=== PATIENT | male | born 1985 | race Caucasian/White ===

== ENCOUNTER 2024-09-20 21:55 | Inpatient (IN) ==
[2024-09-20 22:26] LABS: Basophils # (auto) 0.05 K/uL (0.00-0.20); Basophils % (auto) 0.4 %; Eosinophils # (auto) 0.08 K/uL (0.00-0.50); Eosinophils % (auto) 0.7 %; Hematocrit (blood only) 44.8 % (42.0-52.0); Hemoglobin 15.9 g/dl (14.0-18.0); Immature Granulocytes # (auto) 0.02 K/uL (0.01-0.20); Immature Granulocytes % (auto) 0.2 %; Lymphocytes # (auto) 4.09 K/uL (1.20-3.40); Lymphocytes % (auto) 35.8 %; Mean Corpuscular Hemoglobin 29.9 pg (25.0-34.0); Mean Corpuscular Hgb Conc 35.5 g/dL (32.0-36.0); Mean Corpuscular Volume 84.4 fL (80.0-100.0); Mean Platelet Volume 10.1 fL (9.4-12.4); Monocytes # (auto) 1.09 K/uL (0.11-0.59); Monocytes % (auto) 9.5 %; Neutrophils # (auto) 6.11 K/uL (1.40-6.50); Neutrophils % (auto) 53.4 %; Platelet Count 260 K/uL (130-400); RDW Coefficient of Variation 13.3 % (11.5-14.5); RDW Standard Deviation 40.9 fL (36.4-46.3); Red Blood Count 5.31 M/uL (4.70-6.10); White Blood Count 11.44 K/ul (4.8-10.8)
--- NOTE | 2024-09-20 22:29 | Emergency Department Note ---
Impression & Plan Chest pain, Nausea, Shortness of breath, Elevated troponin ED Provider Note CHIEF COMPLAINT: Nausea, left arm pain, chest discomfort x 2 weeks HISTORY OF PRESENT ILLNESS: This 39-year-old male patient presents to the emergency department via private vehicle for various symptoms. The patient states for the past 2 weeks, he has intermittently been experiencing a nausea type of symptom. He states that there has been no vomiting and he never actually feels like he could throw up, but just generally feels uneasy in the middle of his chest. He states that the symptoms have been worsening over the past few days, particularly with walking on a treadmill. The patient states that he has also had some pain in his left arm which had been relieved with raising his left arm over his head. Last night, the patient had taken his dog outside. He was running after the dog for a few seconds and states after this, he developed sudden onset of severe pain in the middle of his chest which radiated into his back. He states that he then also developed the pain in the left arm which did not improve with raising his arm above his head. The patient states that his symptoms did seem to somewhat improved, but at about 2 or 3 AM, he woke up and his pain had returned. The patient describes a sharp sensation and a tightness in the middle of his chest at the time. He has been feeling unwell throughout most of the day today. He states that he did not have Thanksgiving dinner or travel today due to feeling unwell. He states he has been dieting and eating only cottage cheese for supper. He has been noticing symptoms worsen in the middle of the night for the past few weeks intermittently. The patient states he does notice that an empty stomach does seem to flareup and worsen his symptoms. He notes that he is concerned he may have some reflux, but has not tried any medication for the reflux yet. He denies any recent fever or illness. No recent travel. No history of PE or DVT. No recent surgery. Patient is not on hormone therapy. He denies history of similar symptoms. History provided by: Patient and REVIEW OF SYSTEMS: A 10 system review of systems was performed with positives and pertinent negatives listed in the history of present illness. All other systems were reviewed and are negative. ALLERGIES: NKDA PHYSICAL EXAM: VITALS: Vitals are noted on the nurse's note and reviewed by myself. GENERAL: This is a 39-year-old male, in no acute distress, nondiaphoretic, well- developed well-nourished. SKIN: The skin was without rashes, erythema, edema, or bruising. There is no tenting of the skin. Capillary refill less than 2 seconds. HEAD: Normocephalic atraumatic. EYES: Conjunctivae without injection, sclerae without icterus. NECK: Supple without nuchal rigidity. No lymphadenopathy. No JVD. HEART: Regular rate and rhythm without murmurs gallops or rubs. LUNGS: Clear to auscultation bilaterally without wheezes, rales or rhonchi. No retractions or accessory muscle use. ABDOMEN: Positive bowel sounds x 4. Soft, nontender, without masses or organomegaly. Antoine sign negative. No guarding or rebound tenderness. MUSCULOSKELETAL: No muscle atrophy, erythema, or edema noted. Full range of motion without joint tenderness in all extremities. No tenderness to palpation. Normal gait. Strength 5/5 throughout. NEURO: Patient was alert and oriented to person place and time. Normal sensation to light and sharp touch. No focal neurological deficits. An order was placed for continuous disability liaison officer. The monitor showed a sinus tachycardia at a ventricular rate of 104 bpm, per my interpretation. EKG was reviewed by myself and found to be normal sinus rhythm at a rate of 99 beats per minute and per my interpretation reveals no ST elevation or depression. No T wave inversion. No prior EKG available for comparison. EKG #2 was completed and reviewed by myself and Dr. Alvarado. Normal sinus rhythm at a ventricular rate of [address] elevation or depression. T wave inversions in leads I, V2, V3. Imaging as interpreted by myself and the radiologist revealed no acute findings, with radiologist interpretation as above. I agree with the radiologist's findings as based upon my independent interpretation. EMERGENCY DEPARTMENT COURSE: The patient was seen and evaluated as above. The patient presents for evaluation of chest pain. Chest pain started intermittently for the past several weeks. He did have a sudden onset of severe pain after chasing his dog last evening. He describes a nausea sensation and is having difficulty describing his discomfort. Patient believes his symptoms may be associated with reflux, but has not tried any medication. Initial EKG was completed and was reviewed as noted. IV access was obtained, labs were drawn. Patient was medicated with Pepcid and GI cocktail. Labs reviewed. Per my interpretation, there is a mild leukocytosis of 11.44. No anemia or thrombocytopenia. Coags normal. D-dimer less than 190. Renal, hepatic function and electrolytes without significant abnormality. Lipase 54. Initial troponin is elevated at 1556. Repeat delta troponin was downtrending at 1283. Chest x-ray was completed and was negative for acute abnormality. Dr. Alvarado was notified about the elevated troponin. Case was discussed with the [facility] physician. Repeat EKG was completed and reviewed as noted. I discussed the case with Dr. Tubbs, catalogue illustrator motor room controller. He does not feel that the patient requires emergent catheterization given history and current EKG findings. Was agreeable to ongoing evaluation inpatient. We did elect form CT angiogram to further evaluate the patient's symptoms. This was negative for PE, dissection, or infiltrate. Given the history and workup completed, suspect the patient had a cardiac event last night with the sudden onset of severe pain and elevated troponin as well as EKG findings at this time. Do recommend further evaluation and management of his symptoms as an inpatient. Patient was given aspirin and started on heparin while in the emergency department. I discussed the case with entry level account manager. I discussed the case with Dr. Camacho, [facility] physician. She did agree to evaluate the patient for inpatient management. I did work closely with my attending physician throughout the course of the patient's ED visit. I attest that I have personally reviewed the patient medication list. I attest that I have reviewed the patient's blood pressure and it was found to be elevated. This did improve throughout his ED visit. GCS: 15 In the evaluation and treatment of this patient the following differential diagnoses were entertained: Cardiac ischemia, aortic dissection, pulmonary embolism, pneumothorax, pneumonia, pericarditis, myocarditis, esophageal rupture, GERD, cholecystitis, pancreatitis, musculoskeletal, as well as other pathologies. The chart was completed utilizing [employer] voice recognition software. Grammatical errors, random word insertions, pronoun errors, and incomplete sentences are an occasional consequence of this system due to software limitations, ambient noise, and hardware issues. Any formal questions or concerns about the content, text, or information contained within the body of this dictation should be directly addressed to the provider for clarification. Past Med/Surg History Problem List (Updated 09/21/24 @ 02:19 by Iris Cooper PA-C) Elevated troponin (Acute) Shortness of breath (Acute) Nausea (Acute) Chest pain (Acute) Retrocalcaneal bursitis (back of heel) (Acute) Medical History No pertinent past medical history Surgical History (Updated 06/23/20 @ 13:42 by [employer]) No pertinent past surgical history Social History Smoking Status: Never smoker Preferred Language: Tajik Feels Safe at Home: Yes Allergies Allergies Allergy/AdvReac Type Severity Reaction Status Date / Time hazelnut Allergy Unknown Verified 09/21/24 01:31 Home Meds Home Medications Medication Instructions Recorded Confirmed Phenytoin Sodium (Dilantin) 1 cap PO QAM 30 days #30 caps 07/09/16 Phenytoin Sodium (Dilantin) 1 cap PO UD 30 days #0 caps 07/09/16 Phenytoin Sodium (Dilantin) 200 mg PO UD 30 days #0 caps 07/09/16 Previous Rx's Medication Instructions Recorded hydrocodone-homatropine 5 mg-1.5 5 ml PO Q6H PRN cough #60 mL 08/15/18 mg/5 mL oral syrup Results & Data (ED) Vital Signs Vital Signs - 24 hr 09/20/24 21:56 09/20/24 22:17 09/20/24 22:36 Temperature 36.5 C Temperature Source Temporal Artery Scan Pulse Rate 101 H 94 H 86 Pulse Rate from SpO2 Sensor 86 Respiratory Rate 18 17 Respiratory Effort / Characteristics Non-Labored Respiratory Depth Normal Respiratory Pattern Regular Blood Pressure 183/118 H 132/90 Blood Pressure Mean 139 104 Pulse Oximetry 99 95 Oxygen Delivery Method Room Air Room Air Sepsis Recent Fever Within 48 Hours No Sepsis New/Unexplained Change in Mental Status N/A Sepsis Action Taken by Nursing No Action Required 09/20/24 23:00 09/20/24 23:33 09/21/24 00:36 Temperature Temperature Source Pulse Rate 103 H 93 H 97 H Pulse Rate from SpO2 Sensor Respiratory Rate 16 16 16 Respiratory Effort / Characteristics Respiratory Depth Respiratory Pattern Blood Pressure 146/103 H 157/95 H 135/84 Blood Pressure Mean 118 115 97 Pulse Oximetry 95 97 97 Oxygen Delivery Method Room Air Room Air Room Air Sepsis Recent Fever Within 48 Hours Sepsis New/Unexplained Change in Mental Status Sepsis Action Taken by Nursing 09/21/24 00:36 09/21/24 01:00 Temperature Temperature Source Pulse Rate 111 H 99 H Pulse Rate from SpO2 Sensor Respiratory Rate 20 20 Respiratory Effort / Characteristics Respiratory Depth Respiratory Pattern Blood Pressure 135/84 132/98 Blood Pressure Mean 97 111 Pulse Oximetry 96 95 Oxygen Delivery Method Room Air Room Air Sepsis Recent Fever Within 48 Hours Sepsis New/Unexplained Change in Mental Status Sepsis Action Taken by Nursing Laboratory Data 09/20/24 22:04 09/20/24 22:04 Lab Results 09/20/24 09/20/24 Range/Units 22:04 23:47 WBC 11.44 H (4.8-10.8) K/ul RBC 5.31 (4.70-6.10) M/uL Hgb 15.9 (14.0-18.0) g/dl Hct 44.8 (42.0-52.0) % MCV 84.4 (80.0-100.0) fL MCH 29.9 (25.0-34.0) pg MCHC 35.5 (32.0-36.0) g/dL RDW Std Deviation 40.9 (36.4-46.3) fL RDW Coeff of Kevin 13.3 (11.5-14.5) % Plt Count 260 (130-400) K/uL MPV 10.1 (9.4-12.4) fL Immature Gran % (Auto) 0.2 % Neut % (Auto) 53.4 % Lymph % (Auto) 35.8 % [place] % (Auto) 9.5 % Eos % (Auto) 0.7 % Baso % (Auto) 0.4 % Neut # (Auto) 6.11 (1.40-6.50) K/uL Lymph # (Auto) 4.09 H (1.20-3.40) K/uL [place] # (Auto) 1.09 H (0.11-0.59) K/uL Eos # (Auto) 0.08 (0.00-0.50) K/uL Baso # (Auto) 0.05 (0.00-0.20) K/uL Immature Gran # (Auto) 0.02 (0.01-0.20) K/uL PT 10.4 (9.0-12.0) Seconds INR 1.0 (0.9-1.1) APTT 28 (21-31) Seconds PTT Ratio 1.0 D-Dimer < 190 (0-500) ug/L FEU Sodium 137 (136-145) mmol/L Potassium 3.7 (3.5-5.1) mmol/L Chloride 103 (98-107) mmol/L Carbon Dioxide 25 (21-32) mmol/L Anion Gap 9 (3-11) BUN 12 (6-23) mg/dl Creatinine 0.72 (0.6-1.4) mg/dl Est Cr Clr Drug Dosing 146.2 ml/min eGFR 118.44 BUN/Creatinine Ratio 16.7 (10-20) Glucose 116 H (70-99(Fasting)) mg/dl Calcium 9.3 (8.6-10.3) mg/dl Total Bilirubin 0.3 (0.2-1.0) mg/dl AST 30 (13-39) U/L ALT 33 (7-52) U/L Alkaline Phosphatase 107 H (34-104) U/L Troponin I High Sens 1556.2 H* 1283.6 H* (0-20) pg/ml Total Protein 8.1 (6.0-8.3) gm/dl Albumin 4.8 (3.4-5.0) gm/dl Globulin 3.3 (2.5-4.0) gm/dl Albumin/Globulin Ratio 1.5 (0.9-2) Lipase 54 (11-82) U/L Administered Medications Heparin Sodium/Dextrose (Heparin Sodium/Dextrose) 25,000 units in 500 mls @ 18 mls/hr IV .Q24H [facility]; Protocol Stop: 10/21/24 00:59 Last Admin: 09/21/24 00:55 Dose: 900 units/hr, 18 mls/hr Documented By: YESICA Co-signed By: KML Discontinued Medications Al Hydrox/Mg Hydrox/Simethicone (Aluminum/Magnesium Susp 30 Ml Udc) 30 ml PO NOW STA Stop: 09/20/24 22:22 Last Admin: 09/20/24 22:32 Dose: 30 ml Documented By: KEIRA Aspirin (Aspirin Chew 324 Mg) 324 mg PO NOW STA Stop: 09/21/24 00:37 Last Admin: 09/21/24 00:53 Dose: 324 mg Documented By: YESICA Diphenhydramine HCl (Diphenhydramine Capsule 25 Mg Cap) 25 mg PO NOW ONE Stop: 09/21/24 01:22 Last Admin: 09/21/24 01:37 Dose: 25 mg Documented By: YESICA Heparin Sodium (Porcine) (Heparin Sod (Porcine) 1000 Unit/Ml) 4,000 units IV NOW ONE Stop: 09/21/24 01:01 Last Admin: 09/21/24 00:54 Dose: 4,000 units Documented By: YESICA Co-signed By: JEANETTE Famotidine (Pepcid 20mg Iv Push) 20 mg in 5 mls @ 2.5 mls/min IV NOW STA Stop: 09/20/24 22:22 Last Admin: 09/20/24 22:32 Dose: 2.5 mls/min Documented By: KEIRA Ioversol (Optiray 320 125ml) 125 ml IV ONCE ONE Stop: 09/20/24 23:38 Last Admin: 09/20/24 23:37 Dose: 118 ml Documented By: QUETA Lorazepam (Lorazepam 2 Mg/1 Ml Vial) 1 mg IV NOW STA Stop: 09/20/24 22:56 Last Admin: 09/20/24 23:11 Dose: 1 mg Documented By: YESICA Imaging Data Radiologist's Impression: Chest X-Ray 09/20/24 22:01 Exam(s): XR CXR 1 VIEW EXAM: XR Chest, 1 View CLINICAL HISTORY: Chest pain, nonspecific. TECHNIQUE: Frontal view of the chest. COMPARISON: Chest 2 views dated 08/15/2018 FINDINGS: Lungs: Slightly shallow inspiration. No focal consolidation. The pulmonary vasculature demonstrates no significant radiographic abnormality. Pleural space: Unremarkable. No pneumothorax. No large pleural effusion. Heart: Unremarkable. No cardiomegaly. Mediastinum: No significant abnormality identified. The trachea is midline. Bones/joints: Unremarkable. No acute fracture. IMPRESSION: No acute cardiopulmonary process or significant alteration from the prior examination. Electronically signed by: Aydin May MD 09/20/24 23:23 PM Chest CTA 09/20/24 22:55 Exam(s): CTA CHEST IV Amt: 118 ML OPTIRAY 320 EXAM: CT Angiography Chest With Intravenous Contrast CLINICAL HISTORY: chest pain, sob. TECHNIQUE: Axial computed tomographic angiography images of the chest with intravenous contrast. CTDI is 28.12 mGy and DLP is 901.5 mGy-cm. Automated exposure control was utilized for the study. A dose lowering technique was utilized adhering to the principles of ALARA. MIP reconstructed images were created and reviewed. COMPARISON: No relevant prior studies available. FINDINGS: Limitations: There is respiratory artifact, which degrades image quality on multiple image slices. Pulmonary arteries: Accounting for limitations with diffuse respiratory artifact and suboptimal heterogeneous enhancement pattern, there is no definite evidence for pulmonary embolism. Aorta: No acute findings. No dissection. No thoracic aortic aneurysm. Lungs: No focal airspace consolidation identified. Pleural space: Unremarkable. No significant effusion. No pneumothorax. Heart: Unremarkable. No cardiomegaly. No significant pericardial effusion. Bones/joints: No acute fracture. No dislocation. Soft tissues: Unremarkable. Lymph nodes: Unremarkable. No enlarged lymph nodes. IMPRESSION: 1. Accounting for limitations with diffuse respiratory artifact and suboptimal heterogeneous enhancement pattern, there is no definite evidence for pulmonary embolism. 2. No focal airspace consolidation identified. Mild dependent atelectatic changes noted posteriorly. No pleural effusion or pneumothorax. Electronically signed by: Aydin May MD 09/21/24 00:28 AM Discharge Plan Visit Data Chief Complaint: Cardiac Assessment Stated Complaint: CHEST PAIN, SOB, BACK PAIN, LEFT ARM PAIN ED Provider: Dayday Alvarado ED Midlevel Provider: Iris Cooper Discharge Problem: Chest pain, Nausea, Shortness of breath, Elevated troponin Patient Disposition: Admitted As Inpatient Discharge Instructions Interventions: ED Discharge Assessment Last Done: 09/21/24 01:34
[2024-09-20 22:32] LABS: Albumin Globulin Ratio 1.5 (0.9-2); Albumin Level 4.8 gm/dl (3.4-5.0); BUN Creatinine Ratio 16.7 (10-20); Bilirubin,Total 0.3 mg/dl (0.2-1.0); Calcium 9.3 mg/dl (8.6-10.3); Creatinine Clr Calc Pharmacy 146.2 ml/min; Globulin 3.3 gm/dl (2.5-4.0); Potassium 3.7 mmol/L (3.5-5.1); Total Protein 8.1 gm/dl (6.0-8.3)
[2024-09-20] MEDS: FAMOTIDINE 20MG IV PUSH 20 MG/5 ML SYR IV STA (22:32)
[2024-09-20] MEDS: ALUMINUM/MAGNESIUM SUSP 30 ML UDC PO STA (22:32)
[2024-09-20 22:42] LABS: Troponin I High Sensitivity 1556.2 pg/ml (0-20)
--- NOTE | 2024-09-20 23:00 | Emergency Department Note ---
ED Visit Note Physician Evaluation Note: Patient was seen in conjunction with the midlevel provider. Please see the midlevel provider note for full details of the patient's visit. I have personally evaluated and examined this patient. Patient presented to the ED with chest discomfort that he experienced twice last night that was severe in nature. EKG on arrival did not show any evidence of any acute ischemic changes. Patient's troponin resulted elevated at 1556.2. EKG reviewed by myself shows normal sinus rhythm without any evidence of ST elevation [place]. CT angiography of the chest was obtained that does not show any evidence of PE or aortic dissection. Patient's delta troponin level downtrended to one 1283.6. Given the patient's history, I suspect he likely had an WA last evening with his severe episode of chest pain. His troponin is now downtrending. Patient was given aspirin in the ED, patient will be placed on a heparin drip. This was discussed with cardiology (Dr. Tubbs) by the physician automobile mechanic assistant, and patient will be placed for admission to the medicine service with cardiology consultation. The patient states on my exam he currently does not have any chest discomfort therefore in conjunction with a reassuring EKG that does not show ST elevation WA, I do not feel that cardiac catheterization is indicated emergently at this time. Patient will be admitted to the hospitalist service for further care, please see the physician automobile mechanic assistant note for full details of the patient's presentation. The patient and his at the bedside were in agreement to this plan. I agree with assessment and plan of YURI Marlow DO .
[2024-09-20] MEDS: LORazepam 2 MG/1 ML VIAL IV STA (23:11)
--- NOTE | 2024-09-20 23:24 | XRay Report ---
Exam(s): XR CXR 1 VIEW EXAM: XR Chest, 1 View CLINICAL HISTORY: Chest pain, nonspecific. TECHNIQUE: Frontal view of the chest. COMPARISON: Chest 2 views dated 08/15/2018 FINDINGS: Lungs: Slightly shallow inspiration. No focal consolidation. The pulmonary vasculature demonstrates no significant radiographic abnormality. Pleural space: Unremarkable. No pneumothorax. No large pleural effusion. Heart: Unremarkable. No cardiomegaly. Mediastinum: No significant abnormality identified. The trachea is midline. Bones/joints: Unremarkable. No acute fracture. IMPRESSION: No acute cardiopulmonary process or significant alteration from the prior examination. Electronically signed by: Aydin May MD 09/20/24 23:23 PM
[2024-09-20 23:32] LABS: D Dimer < 190 ug/L FEU (0-500); Partial Thromboplastin Time 28 Seconds (21-31); Prothrombin Time 10.4 Seconds (9.0-12.0)
[2024-09-20] MEDS: OPTIRAY 320 125ml IV ONE (23:37)
--- NOTE | 2024-09-21 00:29 | CT Scan Report ---
Exam(s): CTA CHEST IV Amt: 118 ML OPTIRAY 320 EXAM: CT Angiography Chest With Intravenous Contrast CLINICAL HISTORY: chest pain, sob. TECHNIQUE: Axial computed tomographic angiography images of the chest with intravenous contrast. CTDI is 28.12 mGy and DLP is 901.5 mGy-cm. Automated exposure control was utilized for the study. A dose lowering technique was utilized adhering to the principles of ALARA. MIP reconstructed images were created and reviewed. COMPARISON: No relevant prior studies available. FINDINGS: Limitations: There is respiratory artifact, which degrades image quality on multiple image slices. Pulmonary arteries: Accounting for limitations with diffuse respiratory artifact and suboptimal heterogeneous enhancement pattern, there is no definite evidence for pulmonary embolism. Aorta: No acute findings. No dissection. No thoracic aortic aneurysm. Lungs: No focal airspace consolidation identified. Pleural space: Unremarkable. No significant effusion. No pneumothorax. Heart: Unremarkable. No cardiomegaly. No significant pericardial effusion. Bones/joints: No acute fracture. No dislocation. Soft tissues: Unremarkable. Lymph nodes: Unremarkable. No enlarged lymph nodes. IMPRESSION: 1. Accounting for limitations with diffuse respiratory artifact and suboptimal heterogeneous enhancement pattern, there is no definite evidence for pulmonary embolism. 2. No focal airspace consolidation identified. Mild dependent atelectatic changes noted posteriorly. No pleural effusion or pneumothorax. Electronically signed by: Aydin May MD 09/21/24 00:28 AM
[2024-09-21] MEDS ORDERED: Heparin IV Adult Wt-Based Low-Dose w/ INITIAL Bolus Protocol IV STA (00:34)
[2024-09-21] MEDS ORDERED: HEPARIN SOD (PORCINE) 1000 UNIT/ML IV ONE (00:51)
[2024-09-21] MEDS: ASPIRIN CHEW 324 MG PO STA (00:53)
[2024-09-21] MEDS: HEPARIN SOD (PORCINE) 1000 UNIT/ML IV ONE (00:54)
[2024-09-21] MEDS: HEPARIN SODIUM/DEXTROSE 25,000 UNITS/500 ML BAG IV SCH (00:55)
[2024-09-21] MEDS: diphenhydrAMINE Capsule 25 MG CAP PO ONE ×2 (01:37→21:33)
--- NOTE | 2024-09-21 01:39 | History & Physical Report ---
Date of Service September 21, 2024 Assessment & Plan (1) Chest pain: Plan: 39yo male with no significan past medical or surgical history presenting with several weeks of episodic nausea with left arm discomfort, exertional chest pain over the last 3-4 days. Patient with TWI present on anterior leads of EKG. Troponin elevated at 1556 --> 1283. Presently chest pain free, no additional episodes of nausea. Telemetry reviewed - patient with ST and NSR, no arrhythmia or ectopy. Ddx to include ACS, possible myocarditis ?secondary to Kratom use - has been described although most common cardiovascular side effects tend to be hypertension and tachycardia. Patient received ASA 324mg in the ER -Admit to PCU -Continue Heparin gtt -Nitro PRN chest pain -EKG PRN chest pain -Check HgbA1C and Lipid panel for cardiac risk stratification -Check 2D echo -Cardiology consultation appreciated (2) Elevated troponin: Plan: As above, ddx to include ischemic event, myocarditis, myopericarditis. Troponin is downtrending. Patient with no further chest discomfort or nausea -Check 2D echo -Cardiology consultation appreciated Plan Daily Kratom use -Encourage cessation -Monitor for signs/symptoms of withdrawal -Ativan 1mg po TID as needed for agitation or anxiety -Clonidine 0.1mg po q4h as needed for HTN, tachycardia or withdrawal symptoms -Lomotil PRN abdominal cramping or diarrhea F/E/N - saline lock. electrolytes WNL. NPO for now Ppx - low risk for DVT Code - Full Dispo - Admit to PCU History of Present Illness Chief Complaint: chest discomfort, nausea Primary Care Provider: NO PCP David López is a 39yo male with no significant past medical history presenting with substernal chest discomfort and nausea. Patient reports over the last three weeks he has been experiencing episodes of severe nausea with occasional left arm discomfort. He thought he has been having indigestion. Patient is fairly active and walks on the treadmill frequently. He reports that over the last 3-4 days he has been experiencing some chest discomfort with left arm pain in the first several minutes of using the treadmill. Last evening (09/19/24) patient was running around in the back yard with his dog. Shortly after running around he developed severe, substernal chest discomfort. He describes the pain as boring, penetrating pain that stabbed through his chest and into his back, 10/10 in severity with some associated diaphoresis and nausea. The pain lasted a few minutes then resolved. He did have a recurrence of the pain later in the evening around 02:00 which was not as severe. Patient reports not feeling well throughout the day today causing him to cancel Thanksgiving plans. Patient denies recent illness or vaccination. He does not drink EtOH. He does use Kratom daily Family history unclear - Possibly has two uncles that had cardiac issues, possible MIs in their 40's. In the ER patient initially tachycardic and hypertensive ER Course: Pepcid 20mg IV GI Cocktail x 1 Ativan 1mg IV ASA 324mg Heparin gtt Benadryl 25mg po Allergies Allergy/AdvReac Type Severity Reaction Status Date / Time hazelnut Allergy Unknown Verified 09/21/24 01:31 Home Medications Medication Instructions Recorded Confirmed Type Phenytoin Sodium (Dilantin) 1 cap PO QAM 30 days #30 caps 07/09/16 History Phenytoin Sodium (Dilantin) 1 cap PO UD 30 days #0 caps 07/09/16 History Phenytoin Sodium (Dilantin) 200 mg PO UD 30 days #0 caps 07/09/16 History hydrocodone-homatropine 5 mg-1.5 5 ml PO Q6H PRN cough #60 mL 08/15/18 Rx mg/5 mL oral syrup Past Med/Surg History Problem List Elevated troponin (Acute) Shortness of breath (Acute) Nausea (Acute) Chest pain (Acute) Retrocalcaneal bursitis (back of heel) (Acute) Medical History No pertinent past medical history Surgical History No pertinent past surgical history Social History Smoking Status: Former smoker Hx Alcohol Use: No Hx Substance Use: No Preferred Language: Lao Communication Ability: Effective Cytogenetic Technologist Required: No Beliefs That Will Affect Care: None Current Living Situation: Spouse Other Information That Helps Us Care for You: No Feels Safe at Home: Yes Safety Concerns: Feels Safe At This Time Assistive Devices: None Review of Systems Review of Systems: All systems reviewed & are unremarkable except as noted in HPI & below Physical Exam Physical Exam: General: patient resting comfortably, NAD, non-toxic in appearance, AA&O x 4 Skin: warm, dry, intact, no rashes or lesions HEENT: NC/AT, PERRL, EOMI, anicteric sclera, conjunctiva without injection, external ear normal to inspection and nontender, nares patent, moist mucus membranes, dentition intact, no oropharyngeal lesions, neck supple, trachea midline, no LAD, no thyromegaly, no JVD Heart: +S1/S2, regular, no m/r/g, no reproducible chest wall pain Lungs: equal air entry bilaterally, no rales/rhonchi/wheezes Abd: +BS, soft, NT/ND, no masses/organomegaly/ascites Ext: warm, 2+ pulses in UE/LE bilaterally, no clubbing/cyanosis or edema Neuro: nonfocal, patient AA&O x 4, speech intact, no facial droop, moving all extremities on command with equal strength 5/5 Results & Data Results & Data Vital Signs (Past 12 Hours) Vital Signs Temp Pulse Resp BP Pulse Ox O2 Del Method 09/21/24 01:30 96 H 16 135/87 96 Room Air 09/21/24 01:00 99 H 20 132/98 95 Room Air 09/21/24 00:36 111 H 20 135/84 96 Room Air 09/21/24 00:36 97 H 16 135/84 97 Room Air 09/20/24 23:33 93 H 16 157/95 H 97 Room Air 09/20/24 23:00 103 H 16 146/103 H 95 Room Air 09/20/24 22:36 86 17 132/90 95 Room Air 09/20/24 22:17 94 H 09/20/24 21:56 36.5 C 101 H 18 183/118 H 99 Room Air Laboratory Results Laboratory Results WBC 11.44 K/ul (4.8-10.8) H 09/20/24 22:04 RBC 5.31 M/uL (4.70-6.10) 09/20/24 22:04 Hgb 15.9 g/dl (14.0-18.0) 09/20/24 22:04 Hct 44.8 % (42.0-52.0) 09/20/24 22:04 MCV 84.4 fL (80.0-100.0) 09/20/24 22:04 MCH 29.9 pg (25.0-34.0) 09/20/24 22:04 MCHC 35.5 g/dL (32.0-36.0) 09/20/24 22:04 RDW Std Deviation 40.9 fL (36.4-46.3) 09/20/24 22:04 RDW Coeff of Kevin 13.3 % (11.5-14.5) 09/20/24 22:04 Plt Count 260 K/uL (130-400) 09/20/24 22:04 MPV 10.1 fL (9.4-12.4) 09/20/24 22:04 Immature Gran % (Auto) 0.2 % 09/20/24 22:04 Neut % (Auto) 53.4 % 09/20/24 22: Lymph % (Auto) 35.8 % 09/20/24 22:04 [place] % (Auto) 9.5 % 09/20/24 22:04 Eos % (Auto) 0.7 % 09/20/24 22:04 Baso % (Auto) 0.4 % 09/20/24 22:04 Neut # (Auto) 6.11 K/uL (1.40-6.50) 09/20/24 22:04 Lymph # (Auto) 4.09 K/uL (1.20-3.40) H 09/20/24 22:04 [place] # (Auto) 1.09 K/uL (0.11-0.59) H 09/20/24 22:04 Eos # (Auto) 0.08 K/uL (0.00-0.50) 09/20/24 22:04 Baso # (Auto) 0.05 K/uL (0.00-0.20) 09/20/24 22:04 Immature Gran # (Auto) 0.02 K/uL (0.01-0.20) 09/20/24 22:04 PT 10.4 Seconds (9.0-12.0) 09/20/24 22:04 INR 1.0 (0.9-1.1) 09/20/24 22:04 APTT 28 Seconds (21-31) 09/20/24 22:04 PTT Ratio 1.0 09/20/24 22:04 D-Dimer < 190 ug/L FEU (0-500) 09/20/24 22:04 Sodium 137 mmol/L (136-145) 09/20/24 22:04 Potassium 3.7 mmol/L (3.5-5.1) 09/20/24 22:04 Chloride 103 mmol/L (98-107) 09/20/24 22:04 Carbon Dioxide 25 mmol/L (21-32) 09/20/24 22:04 Anion Gap 9 (3-11) 09/20/24 22:04 BUN 12 mg/dl (6-23) 09/20/24 22:04 Creatinine 0.72 mg/dl (0.6-1.4) 09/20/24 22:04 Est Cr Clr Drug Dosing 146.2 ml/min 09/20/24 22:04 eGFR 118.44 09/20/24 22:04 BUN/Creatinine Ratio 16.7 (10-20) 09/20/24 22:04 Glucose 116 mg/dl (70-99(Fasting)) H 09/20/24 22:04 Calcium 9.3 mg/dl (8.6-10.3) 09/20/24 22:04 Magnesium 2.1 mg/dl (1.7-2.4) 09/20/24 22:04 Total Bilirubin 0.3 mg/dl (0.2-1.0) 09/20/24 22:04 AST 30 U/L (13-39) 09/20/24 22:04 ALT 33 U/L (7-52) 09/20/24 22:04 Alkaline Phosphatase 107 U/L (34-104) H 09/20/24 22:04 Troponin I High Sens 1283.6 pg/ml (0-20) H* 09/20/24 23:47 Total Protein 8.1 gm/dl (6.0-8.3) 09/20/24 22:04 Albumin 4.8 gm/dl (3.4-5.0) 09/20/24 22:04 Globulin 3.3 gm/dl (2.5-4.0) 09/20/24 22:04 Albumin/Globulin Ratio 1.5 (0.9-2) 09/20/24 22:04 Lipase 54 U/L (11-82) 09/20/24 22:04 Impressions Chest X-Ray 09/20/24 22:01 Exam(s): XR CXR 1 VIEW EXAM: XR Chest, 1 View CLINICAL HISTORY: Chest pain, nonspecific. TECHNIQUE: Frontal view of the chest. COMPARISON: Chest 2 views dated 08/15/2018 FINDINGS: Lungs: Slightly shallow inspiration. No focal consolidation. The pulmonary vasculature demonstrates no significant radiographic abnormality. Pleural space: Unremarkable. No pneumothorax. No large pleural effusion. Heart: Unremarkable. No cardiomegaly. Mediastinum: No significant abnormality identified. The trachea is midline. Bones/joints: Unremarkable. No acute fracture. IMPRESSION: No acute cardiopulmonary process or significant alteration from the prior examination. Electronically signed by: Aydin May MD 09/20/24 23:23 PM Chest CTA 09/20/24 22:55 Exam(s): CTA CHEST IV Amt: 118 ML OPTIRAY 320 EXAM: CT Angiography Chest With Intravenous Contrast CLINICAL HISTORY: chest pain, sob. TECHNIQUE: Axial computed tomographic angiography images of the chest with intravenous contrast. CTDI is 28.12 mGy and DLP is 901.5 mGy-cm. Automated exposure control was utilized for the study. A dose lowering technique was utilized adhering to the principles of ALARA. MIP reconstructed images were created and reviewed. COMPARISON: No relevant prior studies available. FINDINGS: Limitations: There is respiratory artifact, which degrades image quality on multiple image slices. Pulmonary arteries: Accounting for limitations with diffuse respiratory artifact and suboptimal heterogeneous enhancement pattern, there is no definite evidence for pulmonary embolism. Aorta: No acute findings. No dissection. No thoracic aortic aneurysm. Lungs: No focal airspace consolidation identified. Pleural space: Unremarkable. No significant effusion. No pneumothorax. Heart: Unremarkable. No cardiomegaly. No significant pericardial effusion. Bones/joints: No acute fracture. No dislocation. Soft tissues: Unremarkable. Lymph nodes: Unremarkable. No enlarged lymph nodes. IMPRESSION: 1. Accounting for limitations with diffuse respiratory artifact and suboptimal heterogeneous enhancement pattern, there is no definite evidence for pulmonary embolism. 2. No focal airspace consolidation identified. Mild dependent atelectatic changes noted posteriorly. No pleural effusion or pneumothorax. Electronically signed by: Aydin May MD 09/21/24 00:28 AM ECG Additional Comments: EKG wtih NSR at 90bpm, left axis deviation, XZ=289, EZW=432, ZSk=780, some TWI present in in anterior and lateral leads Code Status & VTE Plan VTE Prophylaxis Plan VTE Prophylaxis will be ordered: Yes PG Care Time/CCT Total # of Minutes Spent Total Time Spent with Patient: Total time spent is greater than 50% in coordination of care (as documented) at patient's floor/unit and/or counseling patient: Coding Level of Care Code 14143 INT INP/OBS CARE 3/75MIN Diagnoses Chest pain R07.9 Elevated troponin R79.89
[2024-09-21] MEDS ORDERED: ONDANSETRON INJ 2 MG/ML 2 ML VIAL IV PRN (01:53)
[2024-09-21] MEDS ORDERED: NITROGLYCERIN SL 0.4 MG/TAB TAB SL PRN (01:53)
[2024-09-21 02:22] LABS: Magnesium 2.1 mg/dl (1.7-2.4)
[2024-09-21] MEDS ORDERED: DIPHENOXYLATE/ATROPINE 2.5/0.025MG TAB PO PRN (03:13)
--- NOTE | 2024-09-21 07:14 | Hospitalist Progress Note ---
Date of Service September 21, 2024 Assessment & Plan (1) Elevated troponin: (2) S/P cardiac catheterization: (3) Coronary artery disease: Plan Patient is a 39 yo M with no significant past medical or surgical history presenting with several weeks of episodic nausea with left arm discomfort, exertional chest pain over the last 3-4 days. 1) Chest pain Patient with T-wave inversion present on anterior leads of EKG. - Troponin elevated, 1283 <-- 1556 Telemetry reviewed - patient with ST elvations and NSR, no arrhythmia or ectopy upon admission. Received ASA 324mg in the ER. -Continue Heparin gtt, -Nitro PRN chest pain -EKG, PRN chest pain -HgbA1C, 5.3 -Lipid Panel: TChol, 157; LDL, 76; HDL, 51; TG, 149 -2D Echocardiogram: 1. Normal LV size. Borderline concentric LVH. 2. LVEF 55-60%. No regional wall motion abnormalities. 3. Normal RV size and function. 4. No significant valvular pathology. 5. No prior studies for comparison. -Cardiac catheterization Summary: 1. Severe single vessel coronary artery disease -Diffuse proximal to mid LAD disease up to 90% 2. Normal intracardiac filling pressure 3. Successful PCI of proximal to mid LAD with single drug-eluting stent (3.0 x 38 mm Colin; postdilated with 3.5 NC). Residual moderate ostial stenosis in jailed D1 with MICHELLE III flow Recommendations: To PCU for continued monitoring. Loaded with clopidogrel 600 mg in Loading Dock Hand Continue dual-antiplatelet therapy for at least 1 year (clopidogrel, 75 mg, PO, daily; aspirin, 81 mg, PO, daily) Continue statin, and ASCVD risk factor modification (atorvastatin, 40 mg, daily started) Consult cardiac Rehab (2) Elevated troponin As above, ddx to include ischemic event, myocarditis, myopericarditis. Troponin is downtrending. Patient with no further chest discomfort or nausea -Check 2D echo, see above -Cardiology consultation, recommendations above (3) Daily Kratom use -Encourage cessation, Monitor for signs/symptoms of withdrawal -Ativan 1mg, PO, TID as needed for agitation or anxiety -Patient could receive morphine, IV o/n if having breakthrough symptoms -Lomotil PRN abdominal cramping or diarrhea F/E/N - saline lock. electrolytes WNL. NPO for now VTE Ppx - low risk for DVT Code status - Full code Dispo - PCU-Tele Admission and Anticipated Discharge Date Admission Date: September 21, 2024 Supervising Physician Co-Signing Physician Notes I personally examined the patient and verified lopez points of history and exam, discussed case, and agree with decision making and plan documented by Dr. Abreu. Patient is a 39-year-old man presenting with chest pain and ultimately requiring PCI to LAD with DAYSI for severe CAD. Evaluated patient status post catheterization, he was eating dinner and was feeling well. Reviewed patient's motivation to abstain from kratom and will support through withdrawal symptoms. Subjective Patient is a 39 yo male with PMHx of epilepsy/seizure d/o, takes Kratom (mixes in his OJ, BID) presenting with several weeks of episodic nausea with left arm discomfort, exertional chest pain over the last 3-4 days. Patient first thought it was heartburn or indigestion w/ nausea, would be relieved somewhat with burping, but it continued and would get worse with exertion. This morning the patient feels well w/ maybe some mild chest pain (2/10) upon waking that has resolved. No N/V, no arm/neck/jaw pain. Patient still endorses some mild nausea but has not vomited. Review of Systems Constitutional: + fatigue; no fever and no chills Respiratory: no cough and no dyspnea Cardiovascular: no chest pain, no radiating jaw, neck or arm pain, no palpitations and no lightheadedness Gastrointestinal: no abdominal pain, no nausea and no vomiting Neurologic: + headache(s) (3/10); no tingling and no numbness Physical Exam Constitutional: WD/WN, vitals as above Respiratory: normal respiratory effort, lungs clear to auscultation Cardiovascular: RRR, no murmur, no edema Extremities: normal capillary refill; no calf tenderness and no pedal edema Gastrointestinal (Abdomen): normal bowel sounds, soft, nontender, no hepatosplenomegaly Psychiatric: A+Ox3, euthymic affect Results & Data Results & Data Vital Signs (Past 12 Hours) Vital Signs Temp Pulse Pulse Resp BP BP Pulse Ox 09/21/24 02:07 91 H 09/21/24 02:00 36.5 C 111 H 18 142/95 H 99 09/21/24 01:30 96 H 16 135/87 96 09/21/24 01:00 99 H 20 132/98 95 09/21/24 00:36 111 H 20 135/84 96 09/21/24 00:36 97 H 16 135/84 97 09/20/24 23:33 93 H 16 157/95 H 97 09/20/24 23:00 103 H 16 146/103 H 95 09/20/24 22:36 86 17 132/90 95 09/20/24 22:17 94 H 09/20/24 21:56 36.5 C 101 H 18 183/118 H 99 O2 Del Method 09/21/24 02:07 09/21/24 02:00 Room Air 09/21/24 01:30 Room Air 09/21/24 01:00 Room Air 09/21/24 00:36 Room Air 09/21/24 00:36 Room Air 09/20/24 23:33 Room Air 09/20/24 23:00 Room Air 09/20/24 22:36 Room Air 09/20/24 22:17 09/20/24 21:56 Room Air Resident Activity Tracking Resident Involvement: Resident Care Provided Care Provided: Adult Hospital Medicine
[2024-09-21 07:24] LABS: Chol HDL Ratio 3.1 (0-5)
[2024-09-21 07:37] LABS: Estimated Average Glucose 105 mg/dl; Hemoglobin A1C 5.3 % (4.5-5.6)
[2024-09-21 07:40] LABS: ANTI-Xa, UFH(UnfractionatedHep 0.21 IU/ml (0.3-0.7)
[2024-09-21] MEDS ORDERED: INFLUENZA VACC TS2024-25(6m+)/PF (IIV3) 0.5mL Syr IM ONE (09:00)
[2024-09-21] MEDS: ACETAMINOPHEN 500 MG TAB PO PRN (09:43)
[2024-09-21] MEDS: PHENYTOIN SODIUM ER 100 MG CAP PO SCH (09:43)
[2024-09-21] MEDS: LORazepam 1 MG TAB PO PRN (10:52)
[2024-09-21] MEDS: cloNIDine HCL 0.1 MG TAB PO PRN (11:22)
--- NOTE | 2024-09-21 11:42 | Cardiology Consultation ---
Date of Consultation September 21, 2024 Assessment & Plan (1) Chest pain: (2) Elevated troponin: (3) HBP (high blood pressure): Plan 1. Chest pain: He has symptoms of chest discomfort which are very consistent with angina from coronary artery disease. His enzyme pattern would suggest that he had myocardial injury/severe ischemia when the symptoms occurred on September 19, 2024. His electrocardiogram does not show a STEMI but does show abnormalities in the precordial leads suggesting that this is the area of involvement. This needs to be evaluated and I would recommend invasive evaluation. I have discussed this with Dr. Armijo and with the patient and both are in agreement. We will plan on catheterization today. 2. Elevated troponin: His troponins are markedly elevated although his echocardiogram does not show wall motion abnormalities, troponin elevation may n ot coincide with myocardial damage. His electrocardiogram suggests anterior injury. The fact that the enzymes did not increase is consistent with the event occurring 24 hours prior to presentation when he had his primary symptoms. 3. Hypertension: His blood pressure appears to be quite labile, a lot of this may be catecholamine excess. At this point I am going to start beta-blockade and discontinue clonidine (which interacts and will not help with myocardial ischemia or catecholamine induced hypertension). I am going to start a relatively low dose but we may want to titrate this. History of Present Illness Attending Physician: Allie Meraz, History of Present Illness This is a 39-year-old male who has been in good health until recently and presented to the emergency room with several episodes of chest discomfort occurring on September 19, 2024. He did not present until the evening of September 20, 2024. He did not have electrocardiographic evidence of myocardial infarction and his CT angiogram did not show evidence of PE or dissection. He did have an elevated troponin initially to 1556 with a slight drop in follow-up testing. I discussed his symptoms with him, he describes having exertional chest discomfort for some time, possibly months, but much worse on the evening of September 19, 2024. At that time it was associated with some nausea and some left arm discomfort. This recurred on September 20, 2024 when he came into the emergency room. He has not had any symptoms since presentation. Allergies Allergy/AdvReac Type Severity Reaction Status Date / Time hazelnut Allergy Unknown Verified 09/21/24 01:31 Home Medications Medication Instructions Recorded Confirmed Type Phenytoin Sodium (Dilantin) 1 cap PO QAM 30 days #30 caps 07/09/16 History Phenytoin Sodium (Dilantin) 1 cap PO UD 30 days #0 caps 07/09/16 History Phenytoin Sodium (Dilantin) 200 mg PO UD 30 days #0 caps 07/09/16 History hydrocodone-homatropine 5 mg-1.5 5 ml PO Q6H PRN cough #60 mL 08/15/18 Rx mg/5 mL oral syrup Patient History Medical History No pertinent past medical history Surgical History No pertinent past surgical history Social History Smoking Status: Former smoker Hx Alcohol Use: No Hx Substance Use: No Preferred Language: Pashto Communication Ability: Effective Long Filler Cigar Roller Machine Required: No Beliefs That Will Affect Care: None Current Living Situation: Spouse Other Information That Helps Us Care for You: No Feels Safe at Home: Yes Safety Concerns: Feels Safe At This Time Assistive Devices: None Review of Systems Review of Systems: All systems reviewed & are unremarkable except as noted in HPI & below Physical Exam Physical Exam: Constitutional: Alert, cooperative and in no distress. HEENT: Unremarkable Neck: No jugular venous distention, carotid pulses are normal and equal bilaterally without bruits. Pulmonary: Clear to auscultation bilaterally. Cardiac: Regular rhythm with no murmur, gallop or rub. Abdomen: Soft, nontender with normal bowel sounds. Extremities: No edema. Distal pulses intact. Neurologic: No focal findings. Gait is steady. Skin: No rash, ecchymoses or petechiae. Results & Data Vital Signs (Past 12 Hours) Vital Signs Temp Pulse Pulse Resp BP BP BP 09/21/24 10:28 36.6 C 98 H 16 175/96 H 09/21/24 07:49 36.3 C L 84 16 125/83 09/21/24 02:07 91 H 09/21/24 02:00 36.5 C 111 H 18 142/95 H 09/21/24 01:30 96 H 16 135/87 09/21/24 01:00 99 H 20 132/98 11/29/24 00:36 111 H 20 135/84 09/21/24 00:36 97 H 16 135/84 Pulse Ox O2 Del Method 09/21/24 10:28 96 Room Air 09/21/24 07:49 96 Room Air 09/21/24 02:07 09/21/24 02:00 99 Room Air 09/21/24 01:30 96 Room Air 09/21/24 01:00 95 Room Air 09/21/24 00:36 96 Room Air 09/21/24 00:36 97 Room Air Laboratory Results Telemetry: Sinus rhythm in the 80s, no significant arrhythmia. Echocardiogram: Done September 21, 2024 and shows normal left ventricular size with borderline concentric left ventricular hypertrophy and normal left ventricular function without wall motion abnormalities. No significant valvular abnormalities. PG Care Time/CCT Total # of Minutes Spent Total Time Spent with Patient: Total time spent is greater than 50% in coordination of care (as documented) at patient's floor/unit and/or counseling patient: Coding Level of Care Code 66584 IN/OBS CONSULT LVL 4,60M Diagnoses Chest pain R07.9 Elevated troponin R79.89 HBP (high blood pressure) I10
--- NOTE | 2024-09-21 12:10 | XCELERA ---
[id number] [id number]
[2024-09-21] MEDS: NITROGLYCERIN/D5W 100MCG/ML 20ML SYR ONE (14:08)
[2024-09-21] MEDS: HEPARIN (PORCINE) 1000 UNIT/ML 10 ML (CATH LAB USE ONLY) ONE (14:11)
[2024-09-21] MEDS: fentaNYL citrate PF 100 MCG/2 ML VIAL ONE (14:12)
[2024-09-21] MEDS: MIDAZOLAM HCL 1 MG/ML 2ML VIAL ONE (14:12)
[2024-09-21] MEDS: OPTIRAY 350 ONE (14:20)
[2024-09-21] MEDS: CLOPIDOGREL BISULFATE 300 MG TAB ONE (14:24)
[2024-09-21] MEDS: METOPROLOL TARTRATE 25 MG TAB PO SCH ×2 (14:43→21:33)
--- NOTE | 2024-09-21 14:49 | Pre Anesthesia Assessment ---
Date of Service September 21, 2024 Pre Sedation Assessment Vital Signs Temp Pulse Pulse Resp BP BP BP 09/21/24 14:34 98.1 F 101 H 18 128/84 09/21/24 10:28 97.9 F 98 H 16 175/96 H 09/21/24 07:49 97.3 F L 84 16 125/83 09/21/24 02:07 91 H 09/21/24 02:00 97.7 F 111 H 18 142/95 H 09/21/24 01:30 96 H 16 135/87 09/21/24 01:00 99 H 20 132/98 09/21/24 00:36 111 H 20 135/84 09/21/24 00:36 97 H 16 135/84 09/20/24 23:33 93 H 16 157/95 H 09/20/24 23:00 103 H 16 146/103 H 09/20/24 22:36 86 17 132/90 09/20/24 22:17 94 H 09/20/24 21:56 97.7 F 101 H 18 183/118 H Pulse Ox O2 Del Method 09/21/24 14:34 97 Room Air 09/21/24 10:28 96 Room Air 09/21/24 07:49 96 Room Air 09/21/24 02:07 09/21/24 02:00 99 Room Air 09/21/24 01:30 96 Room Air 09/21/24 01:00 95 Room Air 09/21/24 00:36 96 Room Air 09/21/24 00:36 97 Room Air 09/20/24 23:33 97 Room Air 09/20/24 23:00 95 Room Air 09/20/24 22:36 95 Room Air 09/20/24 22:17 09/20/24 21:56 99 Room Air Cardiovascular + regular rate Respiratory + respiratory effort normal Pre-Sedation Airway Assessment Smoking Status: Former smoker Hx Sleep Apnea: No Hx Difficult Intubation: No Short, Thick Neck: No Thyromental Distance: > or= 3.5 Finger Breadths ASA: ASA3 Procedure Planning Contraindications for Sedation: none Current Medications Reviewed: Yes Notes The planned sedation has been discussed with the patient. Informed Consent was obtained. I have identified the patient, determined the appropriateness of sedation and have assessed the patient immediately prior to the procedure. All medicine(s) and interventions are by my order.
--- NOTE | 2024-09-21 14:50 | Post Anesthesia Assessment ---
Date of Service September 21, 2024 Post Sedation Assessment Vital Signs Temp Pulse Pulse Resp BP BP BP 09/21/24 14:34 98.1 F 101 H 18 128/84 09/21/24 10:28 97.9 F 98 H 16 175/96 H 09/21/24 07:49 97.3 F L 84 16 125/83 09/21/24 02:07 91 H 09/21/24 02:00 97.7 F 111 H 18 142/95 H 09/21/24 01:30 96 H 16 135/87 09/21/24 01:00 99 H 20 132/98 09/21/24 00:36 111 H 20 135/84 09/21/24 00:36 97 H 16 135/84 09/20/24 23:33 93 H 16 157/95 H 09/20/24 23:00 103 H 16 146/103 H 09/20/24 22:36 86 17 132/90 09/20/24 22:17 94 H 09/20/24 21:56 97.7 F 101 H 18 183/118 H Pulse Ox O2 Del Method 09/21/24 14:34 97 Room Air 09/21/24 10:28 96 Room Air 09/21/24 07:49 96 Room Air 09/21/24 02:07 09/21/24 02:00 99 Room Air 09/21/24 01:30 96 Room Air 09/21/24 01:00 95 Room Air 09/21/24 00:36 96 Room Air 09/21/24 00:36 97 Room Air 09/20/24 23:33 97 Room Air 09/20/24 23:00 95 Room Air 09/20/24 22:36 95 Room Air 09/20/24 22:17 09/20/24 21:56 99 Room Air Recovery Score Activity: Moves 4 extremities Respiration: Deep Breath/Cough Circulation: +/-20% PreAnes Value Consciousness: Fully Awake Oxygen Saturation: O2 needed for >90% Discharge Sedation Level of Care: Fast Track Phase II Post Sedation Plan On clinical assessment, the patient appears to have tolerated the sedation without complications. Patient is recovering as anticipated. Patient will continue to be monitored by nursing and may be discharged when sedation discharge criteria are met per below protocol. Upon Completions of procedure up to 15 minutes continue every 5 minute vital signs and the P.A.R. score; then discharge to a Phase I or Fast Track to Phase I I per the following guidelines: * Discharge Patient to appropriate Phase II area if PAR is 8 or greater or return to pre- procedure baseline. The post - procedure orders will be as directed. * If PAR score is less than 8 or not return to pre-procedure baseline then patient will follow Phase I monitoring till PAR is reached for Phase II. The Phase I may be done in procedure room or may call to secure a Phase I area. * If naloxone or flumazenil are used for reversal, hold in Phase I for continued monitoring from when last reversal dose was given for a minimum of 60 minutes or longer pending the nurse and/or physician discretion of patient condition before discharge to Phase II. Please call the Sedation Physician to re-evaluate and complete post-note for discharge to Phase II area. Do NOT discharge from procedure sedation or Phase 1 until post- sedation evaluation note is complete by procedure /sedation MD Sedation Discharge Instructions to be given to the patient at discharge to home.
--- NOTE | 2024-09-21 14:52 | Cardiac Catheterization ---
[facility] Data: Chief Information Security Officer Cardiac Status Clinical evaluation leading to the procedure CAD Presenation: Non STEMI Anginal Classification: CCS IV Diagnostic Physicians Name: Arnold Armijo MD Closure Device Recommendations: PCI without planned CABG Cardiac Cath Procedure Full Procedure Date September 21, 2024 Pre-Procedure Diagnosis Pre-Procedure Diagnosis: Non STEMI AUC Score AUC Score: 8 Post-Procedure Diagnosis Post-Procedure Diagnosis: Severe CAD and Successful PCI Procedure(s) Performed Procedure(s) Performed: Coronary Angiography and Left Heart Cath [employer] Reclamation Equipment Operator Arnold Armijo MD Shipping And Receiving(s) So Estimated Blood Loss Estimated Blood Loss: 25 Medication(s) Medication(s): Clopidogrel, Fentanyl, Heparin, Lidocaine 1%, Nicardipine, Nitroglycerin and Versed Summary of Findings Indication: NSTEMI Access: 6 Fr slender right radial artery Catheters: [place], EBU 3.5 guide Findings: LM -normal caliber, no significant disease LAD -medium caliber, diffuse proximal to mid disease up to 90% with disease extending across takeoff of D1. Distal LAD without significant disease and tapers prior to apex. 50% ostial medium D1. Circumflex -medium caliber, AV groove circumflex without significant disease. 25% proximal medium OM1. Small OM2 no disease RCA -dominant, large caliber, no significant disease. Medium RPDA tortuous without significant disease. 20% proximal right PLB. LVEDP -1 -- PCI -- Antithrombotic therapy: Heparin, clopidogrel Procedure: Left main cannulated with EBU 3.5 guide Pre-procedure flow MICHELLE 3 BMW wire passed across lesion into distal vessel [place] blue wire placed into D1 Proximal to mid LAD lesion predilated with 2.5 compliant balloon Dilated lesion stented with 3.0 x 38 mm Colin drug-eluting stent Stent post-dilated with 3.5 noncompliant balloon IC vasodilators administered for spasm Post procedure MICHELLE 3 flow, stent well expanded with minimal residual stenosis and no apparent cardiac complications. Residual intermediate stenosis of ostial diagonal but MICHELLE-3 flow. Arterial Closure: TR band Summary: 1. Severe single vessel coronary artery disease -Diffuse proximal to mid LAD disease up to 90% 2. Normal intracardiac filling pressure 3. Successful PCI of proximal to mid LAD with single drug-eluting stent (3.0 x 38 mm [place]; postdilated with 3.5 NC). Residual moderate ostial stenosis in jailed D1 with MICHELLE III flow Recommendations: To PCU for continued monitoring Loaded with clopidogrel 600 mg in Chief Information Security Officer Continue dual-antiplatelet therapy for at least 1 year Continue statin, and ASCVD risk factor modification Consult cardiac Rehab Hemodynamics Rest Ao:: 133/93/103 Final Ao: 102/71/78 LV: 120/1 Recommendations Recommendations: PCI without planned CABG Specimens Specimens: None Radiation Exposure (mGy) 1811 Contrast (mls) 85 Anesthesia Moderate 9458-2771 Procedural Complication(s) None Disposition Chief Information Security Officer Holding/Recovery I attest to the content of the Intraoperative Record and any orders documented therein. Any exceptions are noted below. PitziG Card Cath Procedure Codes Cardiac Catheterization Procedure 1: Cardiovascular Cath Procedures: 59970 Coronaries and LHC (+/-LV) Moderate Sedation Procedure 1: Sedation/Anesthesia: 07007 Mod Sedation by the same physician;Init15 Min Child Age 5 & Up Procedure 2: Sedation/Anesthesia: 52174 Mod Sedation by the same physician; Ea [id number] Minutes Stenting Procedure 1: Cardiovascular Stent Procedures: 28574 Perc transcatheter placement of intracoronary stent(s), with ang PG Care Time/CCT Total # of Minutes Spent Total Time Spent with Patient: Total time spent is greater than 50% in coordination of care (as documented) at patient's floor/unit and/or counseling patient:
[2024-09-21] MEDS: ATORVASTATIN 40 MG TAB PO SCH (18:19)
[2024-09-21 20:41] VITALS: RESP 18
[2024-09-22 04:54] LABS: Hematocrit (blood only) 42.8 % (42.0-52.0); Hemoglobin 15.1 g/dl (14.0-18.0); Mean Corpuscular Hemoglobin 29.8 pg (25.0-34.0); Mean Corpuscular Hgb Conc 35.3 g/dL (32.0-36.0); Mean Corpuscular Volume 84.6 fL (80.0-100.0); Mean Platelet Volume 10.4 fL (9.4-12.4); Platelet Count 249 K/uL (130-400); RDW Coefficient of Variation 13.3 % (11.5-14.5); RDW Standard Deviation 41.2 fL (36.4-46.3); Red Blood Count 5.06 M/uL (4.70-6.10); White Blood Count 9.09 K/ul (4.8-10.8)
[2024-09-22 05:10] LABS: BUN Creatinine Ratio 18.5 (10-20); Calcium 9.1 mg/dl (8.6-10.3); Creatinine Clr Calc Pharmacy 161.5 ml/min; Potassium 3.7 mmol/L (3.5-5.1)
--- NOTE | 2024-09-22 07:32 | Electrocardiogram Report ---
Test Reason : Blood Pressure : */* mmHG Vent. Rate : 99 BPM Atrial Rate : 99 BPM P-R Int : 174 ms QRS Dur : 118 ms QT Int : 326 ms P-R-T Axes : 69 -61 63 degrees QTcB Int : 418 ms Poor data quality, interpretation may be adversely affected Normal sinus rhythm Left axis deviation Pulmonary disease pattern Non-specific intra-ventricular conduction delay Abnormal ECG No previous ECGs available Confirmed by Edmar Tubbs ([id number]) on 09/22/2024 7:31:58 AM Referred By: REFERRED SELF Confirmed By: Edmar Tubbs
--- NOTE | 2024-09-22 07:34 | Electrocardiogram Report ---
Test Reason : Blood Pressure : */* mmHG Vent. Rate : 90 BPM Atrial Rate : 90 BPM P-R Int : 188 ms QRS Dur : 116 ms QT Int : 366 ms P-R-T Axes : 64 -35 82 degrees QTcB Int : 447 ms Normal sinus rhythm Left axis deviation T wave abnormality, consider anterolateral ischemia Abnormal ECG When compared with ECG of 20-Sep-2024 22:02, (unconfirmed) T wave inversion now evident in Anterolateral leads Confirmed by Edmar Tubbs ([id number]) on 09/22/2024 7:34:17 AM Referred By: REFERRED SELF Confirmed By: Edmar Tubbs
[2024-09-22] MEDS: ASPIRIN 81 MG ECTAB PO SCH (08:01)
[2024-09-22] MEDS: CLOPIDOGREL BISULFATE 75 MG TAB PO SCH (08:01)
[2024-09-22] MEDS: PHENYTOIN SODIUM ER 100 MG CAP PO SCH (08:02)
--- NOTE | 2024-09-22 08:07 | Discharge Summary ---
Date of Service September 22, 2024 Admission HPI Per Admitting Provider David López is a 39yo male with no significant past medical history presenting with substernal chest discomfort and nausea. Patient reports over the last three weeks he has been experiencing episodes of severe nausea with occasional left arm discomfort. He thought he has been having indigestion. Patient is fairly active and walks on the treadmill frequently. He reports that over the last 3-4 days he has been experiencing some chest discomfort with left arm pain in the first several minutes of using the treadmill. Last evening (09/19/24) patient was running around in the back yard with his dog. Shortly after running around he developed severe, substernal chest discomfort. He describes the pain as boring, penetrating pain that stabbed through his chest and into his back, 10/10 in severity with some associated diaphoresis and nausea. The pain lasted a few minutes then resolved. He did have a recurrence of the pain later in the evening around 02:00 which was not as severe. Patient reports not feeling well throughout the day today causing him to cancel Thanksgiving plans. Patient denies recent illness or vaccination. He does not drink EtOH. He does use Kratom daily Family history unclear - Possibly has two uncles that had cardiac issues, possible MIs in their 40's. In the ER patient initially tachycardic and hypertensive ER Course: Pepcid 20mg IV GI Cocktail x 1 Ativan 1mg IV ASA 324mg Heparin gtt Benadryl 25mg po Admission Exam Per Admitting Provider General: patient resting comfortably, NAD, non-toxic in appearance, AA&O x 4 Skin: warm, dry, intact, no rashes or lesions HEENT: NC/AT, PERRL, EOMI, anicteric sclera, conjunctiva without injection, external ear normal to inspection and nontender, nares patent, moist mucus membranes, dentition intact, no oropharyngeal lesions, neck supple, trachea midline, no LAD, no thyromegaly, no JVD Heart: +S1/S2, regular, no m/r/g, no reproducible chest wall pain Lungs: equal air entry bilaterally, no rales/rhonchi/wheezes Abd: +BS, soft, NT/ND, no masses/organomegaly/ascites Ext: warm, 2+ pulses in UE/LE bilaterally, no clubbing/cyanosis or edema Neuro: nonfocal, patient AA&O x 4, speech intact, no facial droop, moving all extremities on command with equal strength 5/5 Principal Diagnosis coronary artery disease Discharge Exam Constitutional WD/WN, vitals as above Respiratory normal respiratory effort, lungs clear to auscultation Cardiovascular RRR, no murmur, no edema Extremities: normal capillary refill; no calf tenderness and no pedal edema Gastrointestinal (Abdomen) normal bowel sounds, soft, nontender, no hepatosplenomegaly Psychiatric A+Ox3, euthymic affect Discharge Data Allergies Allergy/AdvReac Type Severity Reaction Status Date / Time hazelnut Allergy Unknown Verified 09/21/24 01:31 Consultations 09/21/24 00:39 ED Decision to Admit Stat 09/21/24 01:21 Consult Cardiology Routine Procedures Performed Operation Date: 09/21/24 13:00 Actual Procedures s Cineradiography w/Routine Exam - Arnold Armijo MD p Drug Eluting Stent SGl Vessel - Arnold Armijo MD p Cath, Left with Cors and Vent - Arnold Armijo MD Ordered Studies 09/20/24 22:55 CT angio chest PE protocol Stat 09/21/24 12:39 CL Cath Imgs for PACS use only Routine Hospital Course (1) Coronary artery disease: (2) S/P cardiac catheterization: (3) Drug use disorder: Plan Patient is a 39 yo M with no significant past medical or surgical history presenting with several weeks of episodic nausea with left arm discomfort, exertional chest pain over the last 3-4 days. Complains of intense cravings for Kratom today. 1) Chest pain Patient with T-wave inversion present on anterior leads of EKG. - Troponin elevated, 1283 <-- 1556 Telemetry reviewed - patient with ST elvations and NSR, no arrhythmia or ectopy upon admission. Received ASA 324mg in the ER. -Continue Heparin gtt, -Nitro PRN chest pain -EKG, PRN chest pain -HgbA1C, 5.3 -Lipid Panel: TChol, 157; LDL, 76; HDL, 51; TG, 149 -2D Echocardiogram: 1. Normal LV size. Borderline concentric LVH. 2. LVEF 55-60%. No regional wall motion abnormalities. 3. Normal RV size and function. 4. No significant valvular pathology. 5. No prior studies for comparison. -Cardiac catheterization Summary: 1. Severe single vessel coronary artery disease -Diffuse proximal to mid LAD disease up to 90% 2. Normal intracardiac filling pressure 3. Successful PCI of proximal to mid LAD with single drug-eluting stent (3.0 x 38 mm [place]; postdilated with 3.5 NC). Residual moderate ostial stenosis in jailed D1 with MICHELLE III flow Recommendations: To PCU for continued monitoring. Loaded with clopidogrel 600 mg in Air Brake Man Continue dual-antiplatelet therapy for at least 1 year (clopidogrel, 75 mg, PO, daily; aspirin, 81 mg, PO, daily) Continue statin, and ASCVD risk factor modification (atorvastatin, 40 mg, daily started) - dose may need adjustment considering low LDL, 74 (too low LDL could increase hemorrhagic stroke risk) Continue metoprolol tartrate, 12.5 mg, PO, BID as outpatient. Consult cardiac Rehab (2) Elevated troponin As above, ddx to include ischemic event, myocarditis, myopericarditis. Troponin is downtrending. Patient with no further chest discomfort or nausea -Check 2D echo, see above -Cardiology consultation, recommendations above (3) Daily Kratom use -Encourage cessation, Monitor for signs/symptoms of withdrawal -Ativan 1mg, PO, TID as needed for agitation or anxiety -Patient could receive morphine, IV o/n if having breakthrough symptoms -Lomotil PRN abdominal cramping or diarrhea - may need an opioid taper to prevent usage - Discharged patient on Ativan, 0.5 mg, PO, 10 tabs to help control withdrawal symptoms - Discharged patient on buprenorphine-naloxone: 8-2 mg, film, up to twice daily, for withdrawal symptoms. Total Time Total Time Spent Total Time Spent (In Minutes): 54 minutes Total Time Includes: Examination of the Patient, Discharge Planning, Medication Reconciliation and Communication With Other Providers Discharge Plan Discharge Items Patient Disposition: Home - Self-Care Reason For Visit: CHEST PAIN,ELEVATED TROPONIN Discharge Diagnosis: coronary artery disease Kratom withdrawal Activity: Resume your previous activity Non-emergency contact: Primary Care Provider and Therapeutic Specialist Call non-emergency contact if: you have any medication questions and your symptoms worsen Follow-up/Referrals: Galileo Onofre MD [Physician] - PCP,NO [Primary Care Provider] - Diet: Heart Healthy Addtl Attending Provider Instructions: You were admitted to the hospital for chest pain that radiated to your arm along with nausea, subsequently found to have coronary artery disease. You were treated with sub-lingual nitroglycerin, morphine, other medications, and had placement of a coronary artery stent. A discharge summary will be sent to your primary care physician to ensure continuity of care. Please bring this discharge summary with you to your next office appointment so that your provider can review it at that time. Follow-up appointments: We have requested a follow-up appointment with your primary care physician within one week of discharge. Please call their office if you do not hear from them. Keep all your follow-up appointments as already scheduled. If you cannot make an appointment, notify your provider. Medications: Your medication list has been reviewed and reconciled upon discharge to ensure accuracy and continuity of care. An updated list of all your medications is included with your hospital discharge paperwork. Please review this list closely, and make note of any changes. We sent a new medication called metoprolol tartrate to your pharmacy. Take metoprolol tartrate, 12.5 mg, one-half tablet, daily, regularly. We sent a new medication called atorvastatin to your pharmacy. Take atorv astatin, 40 mg, one tablet, daily at night, regularly. We sent a new medication called Plavix (clopidogrel) to your pharmacy. Take Plavix (clopidogrel) 75 mg, one tablet, daily, regularly. We sent a new medication called aspirin to your pharmacy. Take aspirin, 81 mg, one tablet, daily, regularly. We sent a new medication called Ativan (lorazepam) to your pharmacy. Take Ativan (lorazepam), 0.5 mg, one tablet, as needed for Kratom withdrawal symptoms. 10 tablets in all. We sent a new medication called buprenorphine-naloxone to your pharmacy. Take buprenorphine-naloxone 8--2 mg, one film, up to twice a day as needed, for Kratom withdrawal symptoms. Take your medications as instructed; do not skip a dose of your medicines. Make sure all of your doctors know every medicine you are taking (including edlz-xfs-bwfgpbg medicines, vitamins, and supplements). Call your primary care provider before taking any new medicines (including tnxw-lzg-twiidgu medicines, vitamins, and supplements), because some of these may interact with your current medications, or may make your symptoms worse. Tell your primary care provider if you cannot afford your medications. CONTACT YOUR PRIMARY CARE PROVIDER if you experience any of the following: unmanageable withdrawal symptoms from Kratom dosage chest pain, arm/jaw/shoulder pain, nausea or vomiting Difficulty following your treatment plan, or difficulty taking medications CALL 911 OR GO TO THE EMERGENCY DEPARTMENT if you experience any of the following: Sudden, severe abdominal pain or nausea/vomiting Severe chest pain, or chest pain that radiates (moves) to your jaw or arm Sudden, severe shortness of breath or difficulty breathing Thank you for allowing us to participate in your care Pending Studies at Discharge: No Stand-Alone Forms: My [facility], Pain - Opioid Pain Management, Smoking Cessation Medications and DC Order Prescriptions: New buprenorphine-naloxone 8-2 mg film See Rx Instructions .ROUTE .COMPLEX Qty: 30 0RF Rx Instructions: Dissolve 0.5 film (4-1 mg) or 1 film (8-2 mg) under tongue twice daily. lorazepam 0.5 mg tablet 0.5 mg PO BID PRN (Reason: severe anxiety) Qty: 10 0RF clopidogrel 75 mg tablet 75 mg PO DAILY Qty: 30 0RF aspirin 81 mg tablet,delayed release (DR/EC) 81 mg PO DAILY Qty: 30 0RF metoprolol tartrate 25 mg tablet 12.5 mg PO BID Qty: 30 0RF atorvastatin 40 mg tablet 40 mg PO HS Qty: 30 0RF Continued Phenytoin Sodium (Dilantin) 100 MG capsule 200 mg PO UD 30 Days Qty: 0 Patient Comments: TAKE EVERY OTHER PM, ON DAYS OPPISITE OF 100 MG IN PM. Phenytoin Sodium (Dilantin) 100 MG capsule 1 cap PO QAM 30 Days Qty: 30 Phenytoin Sodium (Dilantin) 100 MG capsule 1 cap PO UD 30 Days Qty: 0 Patient Comments: TAKE 1 CAP EVERY OTHER PM, ALTERNATE WITH 2OO MG EVERY OTHER PM. Discontinued hydrocodone-homatropine 5-1.5 mg/5 mL syrup 5 ml PO Q6H PRN (Reason: cough) Qty: 60 0RF Discharge Orders: Discharge Order (Routine); Ordered 09/22/24 Ordered By: Arnold Abreu Admission Data Admit Date/Time: 09/21/24 01:21 Attending Provider: Allie Meraz Admit Provider: Skye Camacho Primary Care Provider: PCP,NO Other Providers: Skye Camacho; Edmar Tubbs Other Interventions: Discharge Summary Assessment (RN) Last Done: 09/22/24 15:01 Supervising Physician Co-Signing Physician Notes I personally examined the patient and verified lopez points of history and exam, discussed case, and agree with decision making and plan documented by Dr. Abreu. Patient is a 39-year-old man presenting with chest pain and ultimately requiring PCI to LAD with DAYSI for severe CAD. POD1 status post catheterization. Reviewed at length with patient his 15-year substance use disorder with kratom. Patient reports using 23 to 26 g daily. He has tried to reduce his use in the past and has been unable to do so. During exam today, patient with active withdrawal symptoms.Reviewed with patient that there is documentation in the literature about case studies in addition to his systemic review about use of buprenorphine therapy for kratom dependency. We reviewed that this is off label. Patient is understanding of this. COWS was performed at bedside and scored to be 18. Induction of buprenorphine started with 4-1 mg film. Patient felt marked improvement of withdrawal symptoms. Provided patient with additional 4-1 mg dose prior to discharge. Prescription provided for patient of buprenorphinenaloxone 8-2 mg films with recommendations for patient to take half film to full film twice daily. Small prescription of lorazepam 0.5 mg #10 provided as well. PDMP was checked and appropriate. Patient will schedule follow-up for continued management outpatient next week. Recommended to patient and to reach out to insurance to find local substance use c ounselors that would be under insurance benefit.
[2024-09-22 08:26] VITALS: O2SAT 98
[2024-09-22] MEDS ORDERED: PHENYTOIN SODIUM ER 100 MG CAP PO SCH ×2 (09:00→21:00)
--- NOTE | 2024-09-22 11:30 | Cardiology Progress Note ---
Date of Service September 22, 2024 Assessment & Plan (1) Coronary artery disease: Plan: -Presented with unstable angina pectoris. -High-sensitivity troponin peaked at 1556. -DAYSI placed in the mid LAD by Dr. Armijo. -Continue aspirin, Plavix, metoprolol tartrate, and Lipitor. -Stable for hospital discharge. -Outpatient follow-up with Dr. Armijo. Admission and Anticipated Discharge Date Admission Date: September 21, 2024 Subjective The patient is resting comfortably in bed without complaints of chest pain or dyspnea. He is anxious for hospital discharge. Have reviewed his medications and the need to follow-up with Dr. Armijo. The patient understands and agrees. Physical Exam Physical Exam: In general this is a well-developed well-nourished white male in no acute distress. HEENT exam is negative. Neck reveals normal carotid upstrokes without bruits. Jugular venous pressure is flat at 90. There is no thyromegaly. Cardiovascular exam reveals a regular rhythm with a normal S1 and S2. No S3, S4, or murmurs are noted. Lungs are clear without rales, rhonchi, or wheezes. Abdomen is soft without bruits. Extremities reveals a dry dressing across the right radial artery at the wrist. No bruits. There is no peripheral edema. Results & Data Vital Signs (Past 12 Hours) Vital Signs Temp Pulse Pulse Resp BP Pulse Ox O2 Del Method 09/22/24 08:07 77 09/22/24 07:52 36.4 C L 81 18 115/74 98 Room Air 09/22/24 03:22 36.5 C 76 18 124/75 97 Room Air Diagnostic Findings graphic engineer is benign. PG Care Time/CCT Total # of Minutes Spent Total Time Spent with Patient: Total time spent is greater than 50% in coordination of care (as documented) at patient's floor/unit and/or counseling patient: Coding Level of Care Code 88038 SUB INP/OBS CARE 3/50MIN Diagnoses Coronary artery disease I25.10
[2024-09-22] MEDS: buprenorphine HCL 2 MG SUBL SL SCH (12:03)
[2024-09-22 12:39] VITALS: PULSE 85; TEMP 97.9
[2024-09-22] MEDS: buprenorphine HCL 2 MG SUBL SL STA (14:12)
[2024-09-22 15:02] VITALS: BP 128/84
== END 2024-09-22 15:46 | disposition home or self-care (01) | DRG 322 ==
LOC: ED 21:55 → SUATTDRO 09-21 01:21 → 4W 09-21 01:21